=== PATIENT | male | born 1995 | race Caucasian/White ===

== ENCOUNTER 2020-11-17 23:04 | Emergency (ER) | payer BC, OTHER ==
[~2020-11-17] VITALS: Ht 175.3 cm; Wt 75.5 kg
[2020-11-17] MEDS ORDERED: ONDANSETRON 2MG/ML, 2ML IVPush ONE (23:30)
[2020-11-17] MEDS ORDERED: GLUCAGON 1 MG IVPush ONE (23:30)
[2020-11-17] MEDS ORDERED: SODIUM CHLORIDE 0.9% 1,000ML IVBOLUS ONE (23:30)
[2020-11-17] MEDS ORDERED: SODIUM CHLORIDE FLUSH 10ML SYR IVF ONE (23:30)
[2020-11-17] MEDS ORDERED: GLUCAGON 1 MG ONE (23:37)
[2020-11-17] MEDS ORDERED: ONDANSETRON 2MG/ML, 2ML ONE (23:37)
[2020-11-18] MEDS ORDERED: PROPOFOL 10 MG/ML, 20ML IVPush ONE (00:30)
[2020-11-18] MEDS ORDERED: PROPOFOL 10 MG/ML, 20ML ONE ×2 (00:55→01:37)
[2020-11-18 02:31] VITALS: BP 103/61
--- NOTE | 2020-11-18 02:33 | NUR ---
Y FROM ER BED TO LOBBY PT STATED "HE ATE STEAK TO FAST AND IT GOT STUCK IN HIS THROAT" GI CALLED FO EDOSCOPY WITH SEDATION. MEAT WAS PUSHED THREW AND REMOVED WITH PT HAVING FULL RELIEF AFTER PROCEDUR. PT AMBULATED WITHOUT DIFFICULY FROM ER BED TO LOBBY WITH PT FRIEND AT SIDE AND PROVIDING PT A RIDE HOME.
== END 2020-11-18 02:38 | disposition home or self-care (01) ==
LOC: ED 11-18 02:11
DX: T18.128A Food in esophagus causing other injury, initial encounter (principal); J45.909 Unspecified asthma, uncomplicated; X58.XXXA Exposure to other specified factors, initial encounter; Y93.89 Activity, other specified; Y92.89 Other specified places as the place of occurrence of the external cause; Y99.8 Other external cause status
CPT/HCPCS: 43247; 96361; 96374; 96375; 99285; J1610; J2405; J2704; J7030